=== PATIENT | female | born 1975 | race Caucasian/White ===

== ENCOUNTER 2022-03-29 12:14 | Inpatient (IN) | payer OTHER ==
[2022-03-29 13:43] LABS: #Eosinphils 0.2 thou/uL (0.0-0.7); #Lymphocytes 1.3 thou/uL (1.20-3.40); #Monocytes 1.5 thou/uL (0.11-0.59); #Neutrophils 14.3 thou/uL (1.40-6.50); %Basophils 0.1 % (0.0-1.0); %Eosinophils 1.4 % (0.0-10.0); %Lymphocytes 7.6 % (21.0-51.0); %Monocytes 8.4 % (0.0-10.0); %Neutrophils 82.6 % (42.0-75.0); Mean Corpuscular HGB CONC 32.9 g/dL (32.0-36.0); Mean Corpuscular Hemoglobin 31.4 pg (27.0-31.0); Mean Corpuscular Volume 95.4 fL (78.0-98.0); Mean Platelet Volume 7.5 fL (7.4-10.4); Platelet Count 278 thou/uL (130-400); Red Blood Cell (RBC) Count 4.13 mill/uL (4.70-6.10); White Blood Cell (WBC) Count 17.3 thou/uL (4.8-10.8)
[2022-03-29 14:04] LABS: ALT (SGPT) 13 U/L (8-55); AST (SGOT) 10 U/L (5-34); Albumin 3.8 g/dL (3.5-5.0); Alkaline Phosphatase 53 U/L (40-110); Anion Gap 12 mmol/L (10-20); BUN (Urea Nitrogen) 15 mg/dL (7.0-18.7); Bilirubin, Total 0.8 mg/dL (0.2-1.2); Calc. Creatinine Clearance 0 mL/min (70-130); Calcium 9.3 mg/dL (7.8-10.44); Carbon Dioxide 26 mmol/L (22-29); Chloride 104 mmol/L (98-107); Estimated GFR 45; Globulin 3.1 g/dL (2.4-3.5); Glucose 94 mg/dL (70-105); Lipase 504 U/L (8-78); Potassium 3.3 mmol/L (3.5-5.1); Protein, Total 6.9 g/dL (6.0-8.3); Sodium 139 mmol/L (136-145)
[2022-03-29] MEDS ORDERED: ISOVUE-370 76%-LOCM 1 ML ONE (14:20)
[2022-03-29 15:16] LABS: Bilirubin Negative (Negative); Blood, Urine 2+ (Negative); Clarity Turbid (Clear); Glucose, Urine (Dipstick) Normal (Negative); Ketone, Urine Negative (Negative); Leukocyte 250 Leu/uL (Negative); Nitrite Negative (Negative); Protein, Urine (Dipstick) 20 mg/dL (Neg-Trace); Specific Gravity, Urine 1.016 (1.002-1.036); Urobilinogen Normal mg/dL (Less than 2); pH, Urine 5.5 (5.0-9.0)
[2022-03-29 15:17] LABS: Bacteria/HPF Rare-Few HPF (None Seen); Pregnancy Test - Urine (BHCG) Negative (Negative); Pregu Control Background? CLEAR/WHITE (CLR/WHITE); Pregu Control Bar Appear? YES (CONTROL BAR); Specific Gravity 1.016 (1.002-1.036)
[2022-03-29] MEDS ORDERED: Ketorolac Tromethamine 30 MG/ML VIAL ONE (15:26)
[2022-03-29] MEDS ORDERED: Ondansetron PF 4 MG/2 ML Vial ONE (15:40)
[2022-03-29] MEDS ORDERED: Acetaminophen 325 MG TAB PO PRN (17:29)
[2022-03-29] MEDS ORDERED: Ondansetron ODT 4 MG TAB PO PRN (17:29)
[2022-03-29] MEDS ORDERED: Ondansetron PF 4 MG/2 ML Vial IVP PRN (17:29)
[2022-03-29] MEDS ORDERED: Senokot S 8.6-50 MG TAB PO PRN (17:29)
[2022-03-29] MEDS ORDERED: Bisacodyl 5 MG TAB PO PRN (17:29)
[2022-03-29] MEDS ORDERED: Morphine 2 MG/ML VIAL SLOW IVP PRN (17:32)
[2022-03-29] MEDS ORDERED: Sodium Chloride 0.9% 1,000 ML IV SCH (17:45)
[2022-03-29] MEDS ORDERED: hydrALAZINE 20 MG/ML VIAL SLOW IVP PRN (17:57)
[2022-03-29 18:05] LABS: Calcium 8.7 mg/dL (7.8-10.44)
[2022-03-29] MEDS ORDERED: Potassium Chloride 20 MEQ TAB PO SCH (18:15)
[2022-03-29] MEDS ORDERED: Nicotine 14 MG PATCH TD SCH (18:15)
[2022-03-29 19:43] VITALS: BMI 41.5
[2022-03-29] MEDS: Fentanyl 100 MCG/2 ML VIAL SLOW IVP PRN ×3 (19:55→23:55)
[2022-03-29] MEDS: Sodium Chloride 0.9% 1,000 ML IV SCH (19:56)
[2022-03-29] MEDS: hydrOXYzine 25 MG TAB PO PRN (21:52)
[2022-03-30] MEDS: Fentanyl 100 MCG/2 ML VIAL SLOW IVP PRN ×3 (02:46→08:15)
[2022-03-30] MEDS: Sodium Chloride 0.9% 1,000 ML IV SCH ×2 (04:08→08:14)
[2022-03-30 06:09] LABS: #Eosinphils 0.4 thou/uL (0.0-0.7); #Lymphocytes 1.5 thou/uL (1.20-3.40); #Monocytes 1.1 thou/uL (0.11-0.59); %Basophils 0.3 % (0.0-1.0); %Lymphocytes 10.5 % (21.0-51.0); %Monocytes 7.5 % (0.0-10.0); %Neutrophils 78.8 % (42.0-75.0); Hemoglobin 12.1 g/dL (12.0-16.0); Mean Corpuscular HGB CONC 33.2 g/dL (32.0-36.0); Mean Corpuscular Hemoglobin 31.8 pg (27.0-31.0); Mean Corpuscular Volume 95.7 fL (78.0-98.0); Platelet Count 235 thou/uL (130-400); RBC Distribution Width 12.7 % (11.5-14.5); Red Blood Cell (RBC) Count 3.81 mill/uL (4.20-5.40)
[2022-03-30 06:42] LABS: ALT (SGPT) 9 U/L (8-55); AST (SGOT) 11 U/L (5-34); Albumin 3.3 g/dL (3.5-5.0); Alkaline Phosphatase 46 U/L (40-110); Anion Gap 15 mmol/L (10-20); BUN (Urea Nitrogen) 14 mg/dL (7.0-18.7); Bilirubin, Total 0.8 mg/dL (0.2-1.2); Calc. Creatinine Clearance 102 mL/min (70-130); Calcium 8.9 mg/dL (7.8-10.44); Carbon Dioxide 21 mmol/L (22-29); Chloride 108 mmol/L (98-107); Estimated GFR 56; Globulin 2.8 g/dL (2.4-3.5); Glucose 101 mg/dL (70-105); Potassium 3.6 mmol/L (3.5-5.1); Protein, Total 6.1 g/dL (6.0-8.3); Sodium 140 mmol/L (136-145)
[2022-03-30] MEDS ORDERED: Enoxaparin Sodium 30 MG/0.3 ML SYRINGE SC SCH (09:00)
[2022-03-30] MEDS: HYDROcodone/Acetaminophen 5/325 mg Tablet PO PRN ×3 (11:25→20:04)
[2022-03-30] MEDS ORDERED: hydrOXYzine 25 MG TAB PO PRN (12:42)
[2022-03-30] MEDS ORDERED: Aripiprazole 15 MG TAB PO SCH (12:45)
[2022-03-30] MEDS ORDERED: Sodium Chloride 0.9% 1,000 ML IV SCH (12:49)
[2022-03-30] MEDS: hydrOXYzine 25 MG TAB PO PRN (14:10)
[2022-03-30] MEDS: Carvedilol 25 MG TAB PO SCH (16:36)
[2022-03-30] MEDS ORDERED: Melatonin 3 MG TAB PO PRN (16:46)
[2022-03-30] MEDS: OXcarbazepine 300 MG TAB PO SCH (20:04)
[2022-03-30] MEDS: NIFEdipine XL 30 MG TAB PO SCH (20:04)
[2022-03-31] MEDS: HYDROcodone/Acetaminophen 5/325 mg Tablet PO PRN ×3 (00:27→08:55)
[2022-03-31 06:36] LABS: #Eosinphils 0.6 thou/uL (0.0-0.7); #Lymphocytes 1.6 thou/uL (1.20-3.40); #Monocytes 0.9 thou/uL (0.11-0.59); #Neutrophils 8.3 thou/uL (1.40-6.50); %Basophils 0.3 % (0.0-1.0); %Eosinophils 5.6 % (0.0-10.0); %Lymphocytes 14.3 % (21.0-51.0); %Monocytes 7.7 % (0.0-10.0); %Neutrophils 72.2 % (42.0-75.0); Hemoglobin 11.4 g/dL (12.0-16.0); Mean Corpuscular HGB CONC 33.6 g/dL (32.0-36.0); Mean Corpuscular Hemoglobin 32.3 pg (27.0-31.0); Mean Corpuscular Volume 96.1 fL (78.0-98.0); Mean Platelet Volume 7.9 fL (7.4-10.4); Platelet Count 233 thou/uL (130-400); RBC Distribution Width 12.5 % (11.5-14.5); Red Blood Cell (RBC) Count 3.51 mill/uL (4.20-5.40); White Blood Cell (WBC) Count 11.5 thou/uL (4.8-10.8)
[2022-03-31 07:06] LABS: ALT (SGPT) 10 U/L (8-55); AST (SGOT) 11 U/L (5-34); Albumin 3.3 g/dL (3.5-5.0); Alkaline Phosphatase 47 U/L (40-110); Anion Gap 11 mmol/L (10-20); BUN (Urea Nitrogen) 13 mg/dL (7.0-18.7); Bilirubin, Total 0.5 mg/dL (0.2-1.2); Calc. Creatinine Clearance 103 mL/min (70-130); Carbon Dioxide 25 mmol/L (22-29); Chloride 106 mmol/L (98-107); Estimated GFR 57; Globulin 2.9 g/dL (2.4-3.5); Glucose 96 mg/dL (70-105); Potassium 3.7 mmol/L (3.5-5.1); Protein, Total 6.2 g/dL (6.0-8.3); Sodium 138 mmol/L (136-145)
[2022-03-31] MEDS: NIFEdipine XL 30 MG TAB PO SCH (08:54)
[2022-03-31] MEDS: OXcarbazepine 300 MG TAB PO SCH (08:55)
[2022-03-31] MEDS: Carvedilol 25 MG TAB PO SCH ×2 (08:55→17:53)
[2022-03-31] MEDS ORDERED: Spironolactone 25 MG TAB PO SCH (09:00)
[2022-03-31] MEDS ORDERED: Enoxaparin Sodium 40 MG/0.4 ML SYRINGE SC SCH (09:00)
[2022-03-31] MEDS ORDERED: Aripiprazole 15 MG TAB PO SCH (09:00)
[2022-03-31] MEDS ORDERED: Losartan 25 MG TAB PO SCH (09:00)
[2022-03-31] MEDS: hydrOXYzine 25 MG TAB PO PRN (10:32)
[2022-03-31 12:53] VITALS: BP 135/80; TEMP 98.3
== END 2022-03-31 17:45 | disposition home or self-care (01) | DRG 439 ==
LOC: ERS 12:14 → EDSEX 12:14 → T4-B 17:32 → INTOOBSV 17:32 → OBSVTOIN 03-30 07:50
PROVIDERS: ADMIT Internal Medicine; ATTEND Internal Medicine
DX: K85.00 Idiopathic acute pancreatitis without necrosis or infection (principal); N17.9 Acute kidney failure, unspecified; Z68.41 Body mass index [BMI] 40.0-44.9, adult; Z20.822 Contact with and (suspected) exposure to COVID-19; I10 Essential (primary) hypertension; F31.9 Bipolar disorder, unspecified; E27.8 Other specified disorders of adrenal gland; F17.210 Nicotine dependence, cigarettes, uncomplicated; F41.0 Panic disorder [episodic paroxysmal anxiety]; E87.6 Hypokalemia; E66.01 Morbid (severe) obesity due to excess calories; Z90.49 Acquired absence of other specified parts of digestive tract; Z79.899 Other long term (current) drug therapy; Z83.3 Family history of diabetes mellitus
CPT/HCPCS: 36415; 74177; 80053; 81003; 81015; 81025; 83690; 84478; 85025; 87086; 96375; 96376; G0378; J0360; J1650; J1885; J2405; J3010; J7050; Q9966; U0003; U0005